=== PATIENT | male | born 1950 | race Caucasian/White ===

== ENCOUNTER 2022-03-13 13:47 | Emergency (ER) | payer OTHER, MEDICAID ==
[~2022-03-13] VITALS: Ht 170.2 cm; Wt 101.6 kg
[2022-03-13 13:55] VITALS: BP 106/65
--- NOTE | 2022-03-13 14:14 | NUR ---
Dr. Burton evaluating patient at bedside.
--- NOTE | 2022-03-13 14:55 | NUR ---
71 y/o male biba from [facility] for c/o generalized weakness. Per EMS, patient is weaker than usual, ambulating unsteady and not eating well. Patient denies any pain or SOB. Medical History:CVA, DEMENTIA, STROKE/DVT, CA, HLP NKDA
[2022-03-13 15:04] LABS: BASOPHILS # (AUTO) 0.1 K/uL (0.00-0.22); BASOPHILS % (AUTO) 0.4 % (0.0-2.0); EOSINOPHILS # (AUTO) 0.1 K/uL (0-0.4); EOSINOPHILS % (AUTO) 0.4 % (0.0-4.0); HEMATOCRIT 43.3 % (36-52); HEMOGLOBIN 14.2 g/dL (12.0-18.0); LYMPHOCYTES # (AUTO) 1.2 K/uL (2.0-11.5); LYMPHOCYTES % (AUTO) 7.2 % (20.5-51.1); MEAN CORPUSCULAR HEMOGLOBIN 30 pg (27-31); MEAN CORPUSCULAR HGB CONC 33 g/dL (33-37); MEAN CORPUSCULAR VOLUME 92.4 fL (80-94); MONOCYTES # (AUTO) 1.4 K/uL (0.8-1.0); MONOCYTES % (AUTO) 8.7 % (1.7-9.3); NEUTROPHILS # (AUTO) 13.7 K/uL (1.8-7.7); NEUTROPHILS % (AUTO) 83.3 % (42.2-75.2); PLATELET COUNT (AUTO) 273 K/uL (140-450); RED BLOOD CELL COUNT(AUTO) 4.68 MIL/uL (4.20-6.10); RED CELL DISTRIBUTION WIDTH 13.8 % (11.6-13.7); WHITE BLOOD COUNT (AUTO) 16.5 K/uL (4.8-10.8)
[2022-03-13 15:21] LABS: CARBON DIOXIDE 25.7 mmol/L (21-32); CREATININE 0.9 mg/dL (0.6-1.3); POTASSIUM 3.7 mmol/L (3.5-5.1)
[2022-03-13 15:34] LABS: ALBUMIN 3.1 g/dL (3.4-5.0); TOTAL BILIRUBIN 2.9 mg/dL (0.0-1.0)
--- NOTE | 2022-03-13 17:54 | NUR ---
# 16 FR Urinary catheter inserted utilizing sterile technique. Immediate return of 30 ml abbie urine noted. Urine sample collected and sent to lab. Pt tolerated procedure well.
[2022-03-13 18:17] LABS: APPEARANCE,URINE CLEAR (CLEAR); BILIRUBIN,URINE NEGATIVE (NEGATIVE); BLOOD, URINE NEGATIVE (NEGATIVE); COLOR,URINE YELLOW (YELLOW); LEUKOCYTE ESTERASE ,URINE NEGATIVE (NEGATIVE); NITRITE, URINE NEGATIVE (NEGATIVE); UGLUCOSE NEGATIVE (NEGATIVE)
--- NOTE | 2022-03-13 19:10 | NUR ---
Attempted to call facility for transportation. Unable to leave voicemail and no one is answering. [facility] [phone]
--- NOTE | 2022-03-13 19:20 | NUR ---
Report given to NURIA Win for transfer of care.
--- NOTE | 2022-03-13 19:30 | NUR ---
RESTING IN BED WITH AT BEDSIDE. PT IS DISCHARGED. NO TRANSPORTATION IS AVAILABLE UNTIL TOMORROW AM
--- NOTE | 2022-03-13 22:00 | NUR ---
Patient appears to be resting comfortably in bed. Vital Signs within normal limits. Respirations even and unlabored.
--- NOTE | 2022-03-14 02:00 | NUR ---
Patient appears to be resting comfortably in bed. Vital Signs within normal limits. Respirations even and unlabored.
--- NOTE | 2022-03-14 06:00 | NUR ---
RESTING COMFORTABLY AT PRESENT
--- NOTE | 2022-03-14 08:00 | NUR ---
Provided pt with breakfast tray.
--- NOTE | 2022-03-14 10:57 | NUR ---
pt assisted to standing position to urinate.
[2022-03-14 15:04] VITALS: BP 118/76
--- NOTE | 2022-03-14 15:11 | NUR ---
Patient discharged with v/s stable. Written and verbal after care instructions given and explained. Patient verbalized understanding. Ambulance Transport with to long term. All questions addressed prior to discharge. Advised to follow up with PMD.
== END 2022-03-13 15:11 | disposition home or self-care (01) ==
LOC: MED 13:47
DX: R53.1 Weakness (principal); Z20.822 Contact with and (suspected) exposure to COVID-19; I25.10 Atherosclerotic heart disease of native coronary artery without angina pectoris
CPT/HCPCS: 36415; 71045; 80053; 81003; 83605; 85025; 87040; 93005; 99285